=== PATIENT | female | born 1975 | race Caucasian/White ===

== ENCOUNTER 2022-01-03 12:07 | Emergency (ER) | payer OTHER ==
[~2022-01-03] VITALS: Ht 160 cm; Wt 63.5 kg
[2022-01-03] MEDS ORDERED: PERCOCET 5-3251 EACH PO (15:57)
== END 2022-01-03 16:05 | disposition home or self-care (01) ==
LOC: ER 12:07
DX: M25.511 Pain in right shoulder (principal); X58.XXXA Exposure to other specified factors, initial encounter; Y93.9 Activity, unspecified; Y92.230 Patient room in hospital as the place of occurrence of the external cause; Y99.9 Unspecified external cause status; Z88.6 Allergy status to analgesic agent; Z91.013 Allergy to seafood

== ENCOUNTER 2022-01-05 11:10 | Outpatient (CLI) | payer OTHER ==
[~2022-01-05 11:10] MED LIST: PERCOCET 5-3251 EACH PO
== END 2022-01-05 11:25 | disposition home or self-care (01) ==
LOC: MRI 11:10
PROVIDERS: ATTEND Emergency Medicine Hospice and Palliative Medicine
DX: M75.101 Unspecified rotator cuff tear or rupture of right shoulder, not specified as traumatic (principal)
CPT/HCPCS: 73221